=== PATIENT | female | born 1980 | race Caucasian/White ===

== ENCOUNTER 2020-03-07 14:23 | Emergency (ER) | payer OTHER, SELFPAY ==
[2020-03-07 14:54] VITALS: BP 125/75; PULSE 95; RESP 16; TEMP 36.8; O2SAT 99
--- NOTE | 2020-03-07 15:07 | ED.GENADULT ---
HPI - General Adult General Chief complaint: Upper Respiratory Infection Stated complaint: upper respiratory infection Time Seen by Provider: 03/07/20 15:07 Source: patient Mode of arrival: ambulatory Limitations: no limitations History of Present Illness HPI narrative: 39-year-old female patient presents to the [facility] with complaints of sore throat, funny feeling to the tongue as well as decrease in taste for the past 2 days. Patient states she has had slight shortness of breath and a cough. Patient states that she is an active smoker at this time. Patient denies or breast-feeding. Denies fevers, nausea, vomiting or diarrhea. Patient denies any chest pain. Patient requesting Covid testing today. Related Data Home Medications Medication Instructions Recorded Confirmed No Home Medications 03/07/20 03/07/20 Allergies Allergy/AdvReac Type Severity Reaction Status Date / Time acetaminophen [From Vicodin] Allergy Difficulty Verified 03/07/20 15:23 Breathing adhesive tape Allergy Itching Verified 03/07/20 15:23 cefaclor [From Ceclor] Allergy Itching Verified 03/07/20 15:23 cephalexin [From Keflex] Allergy Itching Verified 03/07/20 15:23 hydrocodone [From Vicodin] Allergy Difficulty Verified 03/07/20 15:23 Breathing meperidine [From Demerol] Allergy Difficulty Verified 03/07/20 15:23 Breathing metronidazole [From Flagyl] Allergy Swelling Verified 03/07/20 15:23 of Lip/Tongue/Throat topiramate Allergy Itching Verified 03/07/20 15:23 tramadol Allergy Nausea and Verified 03/07/20 15:23 Vomiting Review of Systems Review of Systems: Narrative: CONSTITUTIONAL: Denies fever, chills, or sweats. EYES: Denies visual changes, redness, or discharge. ENT: Denies rhinorrhea, congestion, positive sore throat, denies otalgia. Positive funny feeling to the tongue and decrease in taste CARDIOVASCULAR: Denies chest pain, palpitations, or edema. RESPIRATORY: Positive cough and slight dyspnea. GASTROINTESTINAL: Denies abdominal pain, nausea, vomiting, or diarrhea. GENITOURINARY: Denies dysuria or hematuria. SKIN: Denies rash or itching. MUSCULOSKELETAL: Denies back pain, joint pain, or myalgia. NEUROLOGIC: Denies headache, numbness, or weakness. PSYCHIATRIC: Denies anxiety or depression. PMFSH Comments At the time of my signature I agree with nursing past medical history, surgical, social, and family history. There is no relevant family history pertinent to the presenting complaint. Exam Narrative: Exam Narrative: GENERAL: Well-appearing, well-nourished, and in no acute distress. HEAD: Normocephalic, atraumatic. No tenderness noted to frontal maxillary sinuses on palpation EYES: PERRLA and EOMI. ENT: Nares clear, no rhinorrhea or epistaxis. Mucous membranes moist. No tonsils present to the posterior pharynx. There is slight erythema noted. Bilateral TM is clear. No foreign bodies noted to the canal. NECK: Supple. No lymphadenopathy CHEST: Clear to auscultation. No respiratory distress. HEART: Regular rate and rhythm. No murmur heard. Normal peripheral pulses. ABDOMEN: Soft, nontender, nondistended, normal active bowel sounds. EXTREMITIES: Normal range of motion. No edema. SKIN: Warm, dry, no rash. NEURO: No focal deficits. Alert and oriented x3. Course Vital Signs Vital signs: Vital Signs Temperature 36.8 C 03/07/20 14:54 Pulse Rate 95 03/07/20 14:54 Respiratory Rate 16 03/07/20 14:54 Blood Pressure 125/75 03/07/20 14:54 Pulse Oximetry 99 03/07/20 14:54 Temperature 36.8 C 03/07/20 14:54 Pulse Rate 95 03/07/20 14:54 Respiratory Rate 16 03/07/20 14:54 Blood Pressure 125/75 03/07/20 14:54 Pulse Oximetry 99 03/07/20 14:54 Vital signs reviewed. Medical Decision Making Differential Diagnosis Differential Diagnosis: Differential diagnosis: Allergic rhinitis, chronic sinusitis, tonsillitis, acute sinusitis, infectious mononucleosis, seasonal i
== END 2020-03-07 15:39 | disposition home or self-care (01) ==
PROVIDERS: Emergency Provider Nurse Practitioner Family; PCP Nurse Practitioner Family
DX: Z20.828 Contact with and (suspected) exposure to other viral communicable diseases (principal); J02.9 Acute pharyngitis, unspecified; I10 Essential (primary) hypertension; K21.9 Gastro-esophageal reflux disease without esophagitis; F17.200 Nicotine dependence, unspecified, uncomplicated
CPT/HCPCS: 87081; 87880; 99203; G0463